=== PATIENT | male | born 1970 | race Caucasian/White ===

== ENCOUNTER 2017-05-03 05:17 | Day surgery (SDC) | payer OTHER ==
--- NOTE | 2017-04-28 03:43 | PREOPHP ---
DATE OF ADMISSION: 05/03/2017 Patient to have surgery with Dr. Ramirez Saavedra 05/03/2017. Consultation requested by Dr. Ramirez Saavedra for medical evaluation and clearance of a 46-year-old gentleman about to undergo surgery. Thank you Dr. Saavedra for allowing us to participate in the care of this patient. Kali Kendrick is a 46-year-old gentleman who has issues with his knee, currently being admitted for correction of the above. PAST SURGICAL HISTORY: In terms of a prior surgical history, had ACL repair on the left knee done in the past. Also had a compound fracture on his left forearm, which was surgically reduced, and treated. Other than that has been relatively well from that standpoint; however, he did have episodes of atrial fibrillation requiring ablation and is currently taking the following medications. MEDICATIONS: 1. Bisoprolol 10 mg b.i.d. 2. Flecainide 100 mg b.i.d. 3. Penlac topical prn . 4. Effexor xr 37.5 mg b.i.d. 5. A variety of other p.r.n. medications. ALLERGIES: HE IS ALLERGIC OR SENSITIVE TO DIGOXIN. PAST FRACTURES: Included a left forearm fracture other than patient has been generally healthy from a medical standpoint. SOCIAL HISTORY: The patient is , has 3 daughters. He does not smoke or drink alcohol. Does drink coffee. Usually has some difficulty sleeping at night. FAMILY HISTORY: Both parents are alive. Father is 75, unknown in his terms of his status of general health. Mother is 72 in good health. Patient is one of nine. Other than diabetes, he knows of no other significant family history of cancer, hypertension, stroke or heart. REVIEW OF SYSTEMS: HEENT: Denies any headaches. CARDIORESPIRATORY: Denies any chest pain or shortness of breath. GASTROINTESTINAL: No melena or hematemesis. GENITOURINARY: No urgency, frequency. MUSCULOSKELETAL: Positive for left knee pain. NEUROPSYCHIATRIC: Unremarkable. GENERAL HEALTH: As above. PHYSICAL EXAMINATION: VITAL SIGNS: Patient's blood pressure was 142/64, pulse was 60 and regular, respiration were 18, temperature 98.6. Height 6 feet, weight 368 pounds. Patient was noted to be a well- developed, well-nourished, obviously overweight male, alert and cooperative, in no apparent acute distress. Oriented to time, place and person. HEENT: Head was atraumatic. Eyes: Pupils were equal, reactive to light and accommodation. Fundi were benign. Tympanic membranes were unremarkable. Nose was negative. Mouth was unremarkable. Fair oral hygiene was present. NECK: Supple without any rigidity. Trachea was midline. Thyroid was unremarkable. Neck veins were flat. Carotid pulses were equal. No bruits were heard. BACK: Exam was unremarkable. CHEST: Symmetrical. BREAST AND AXILLARY: Exam did not reveal any masses. LUNGS: Clear to percussion, auscultation. CARDIAC: PMI is 5th intercostal space at the midclavicular line where sinus rhythm was noted. No significant murmurs, rubs or gallops being elicited. ABDOMEN: Obese and soft. Good bowel sounds were noted. No significant organomegaly, masses or tenderness being noted. GENITALIA: Normal male external genitalia. RECTAL AND PROSTATE: Per PCP. EXTREMITIES: Did not reveal any clubbing, edema or cyanosis. Scar was noted on the left knee from prior surgery. Peripheral pulses were physiologic. SKIN: Moist and warm without any eruptions. LYMPHATIC: No gross lymphadenopathy was noted. NEUROLOGIC: Grossly intact. IMPRESSION: 1. Recurrent tear, anterior cruciate ligament left knee 2. Paroxysmal atrial fibrillation. 3. Metabolic syndrome. 4. Anxiety/depression. 5. Stable health. LABORATORY: Review of laboratory and other data revealed the following. Patient's chemistry panel revealed normal electrolytes. Random glucose was 116. BUN, creatinine, liver function tests, CBC, sed rate, UA, PT and PTT were normal. Patient's EKG revealed nonspecific ST-T wave changes and patient's urinary bladder scan revealed a 61 cc residual. Chest x-ray did not reveal any acute infiltrates. DISCUSSION: Dr. Saavedra, I see no contraindication in this patient undergoing the current proposed surgery under the desired form of anesthesia. I feel he is a suitable candidate at this particular time. Should any medical problems arise during his stay at [facility], we will be more than happy to follow him along with you during that stay. Thank you again, Dr. Ramirez Saavedra, for allowing us to participate in the care of this patient. Dictated By: Rolando Canela MD /elaine/ritu /Document#: [id number] DEB[place]
[2017-04-30 15:02] VITALS: BMI 46.8
[2017-05-03] VITALS (15 sets, daily range): BP systolic 130–166; BP diastolic 55–75; PULSE 64–88; RESP 14–23; Ht 185.4 cm; Wt 167.3 kg
[~2017-05-03] VITALS: Ht 185.4 cm; Wt 167.3 kg
[2017-05-03] MEDS ORDERED: BISO10TA16 PO (06:16)
[2017-05-03] MEDS ORDERED: CLON1TAB3 PO (06:16)
[2017-05-03] MEDS ORDERED: FLEC100T PO (06:16)
[2017-05-03] MEDS ORDERED: VENL-42 PO (06:16)
--- NOTE | 2017-05-03 06:43 | HPN ---
Date/Time of Note Date/Time of Note DATE: 05/03/17 TIME: 06:43 Interval H&P Admission Note Pt. seen H&P reviewed: No system changes JEFERSON POWELL MD May 03, 2017 06:43
[2017-05-03] MEDS ORDERED: FENTAnyl 50 MCG/ML VIAL ONE (06:46)
[2017-05-03] MEDS ORDERED: MIDAZOLAM 1 MG/ML 2 ML INJ ONE (06:46)
[2017-05-03] MEDS ORDERED: BUPIVACAINE 0.5%/EPI (SDV) 30 ML INJ ONE (06:47)
[2017-05-03] MEDS ORDERED: ROPIVACAINE 0.5 % 30 ML VIAL ONE ×2 (06:47→07:03)
[2017-05-03] MEDS ORDERED: LACTATED RINGER'S 1,000 ML IV SCH (07:00)
[2017-05-03] MEDS ORDERED: POLYMYXIN/BACITRACIN 1L IRRIG ONE (07:03)
[2017-05-03] MEDS ORDERED: hydrALAzine 20 MG INJ ONE (08:24)
[2017-05-03] MEDS ORDERED: hydrALAzine 20 MG INJ IV PRN (08:30)
[2017-05-03] MEDS ORDERED: FENTAnyl 50 MCG/ML VIAL IV PRN (08:30)
[2017-05-03] MEDS ORDERED: DIPHENHYDRAMINE 50 MG INJ IV PRN (08:30)
[2017-05-03] MEDS ORDERED: MEPERIDINE 25 MG INJ IV PRN (08:30)
[2017-05-03] MEDS ORDERED: ONDANSETRON 4 MG INJ IV PRN ×2 (08:30→12:30)
[2017-05-03] MEDS ORDERED: LABETALOL HCL 20MG INJ IV PRN (08:30)
[2017-05-03] MEDS ORDERED: morphine (1 MG/ML) 10ML SYRINGE IV PRN ×2 (08:30)
[2017-05-03] MEDS ORDERED: morphine 10 MG INJ ONE ×2 (08:36→10:11)
[2017-05-03] MEDS ORDERED: NALOXONE (0.4 MG/ML) INJ IV PRN (09:30)
[2017-05-03] MEDS ORDERED: morphine SULFATE/PF (10 MG/10 ML) INJ ONE (11:57)
[2017-05-03] MEDS ORDERED: POVIDONE IODINE 10% 28.4 GM OINT ONE (12:05)
[2017-05-03] MEDS ORDERED: SOD CHLORIDE 0.9% 1,000 ML IV SCH (12:29)
[2017-05-03] MEDS ORDERED: OXYCODONE/ACETAMINOPHEN (5/325) TAB PO PRN ×2 (12:30)
[2017-05-03] MEDS ORDERED: morphine 2 MG INJ IV PRN (12:30)
--- NOTE | 2017-05-03 12:32 | OPPN ---
Date/Time of Note Date/Time of Note DATE: 05/03/17 TIME: 12:30 Operative Report Preoperative Diagnosis Left knee ACL re-tear, medial meniscus tear, chondromalacia patella, retained/ painful hardware Postoperative Diagnosis Same Operation/Procedure Performed Left ACLR (BTB allograft), partial medial menisectomy, removal deep implant Provider: JEFERSON POWELL MD assistant signal maintainer: JACQUELYN HOLLEY MD Anesthesia: general Estimated blood loss: 50 - 100 ml's Specimens john (2) Grafts/Implants Allograft patellar tendon Complications: None JEFERSON POWELL MD May 03, 2017 12:32
[2017-05-03] MEDS ORDERED: ALBUTEROL/IPRATROPIUM (NEB) 3 ML AMP HHN STA (12:33)
--- NOTE | 2017-05-04 04:45 | OPR ---
DATE OF OPERATION: 05/03/2017 SURGEON: Ramirez Saavedra MD. BUSINESS SEGMENT MANAGER: Anastacio Reyes MD. PREOPERATIVE DIAGNOSES: 1. Failed a left anterior cruciate ligament reconstruction. 2. Degenerative joint disease of the knee. 3. Rule out tear and meniscus tear. POSTOPERATIVE DIAGNOSES: 1. Postop diagnosis is failed left anterior cruciate ligament reconstruction with a recurrent tear. 2. Tear of the medial meniscus. 3. 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 4. Chondromalacia grade 2-3 medial compartment grade 1 lateral compartment. 5. Status post-partial lateral meniscectomy. 6. Narrowed intercondylar notch. 7. Retained hardware at the operative site. OPERATION PERFORMED: 1. Arthroscopy of the left knee. 2. Partial medial meniscectomy. 3. Removal 2 john from the tibia. 4. Excision torn anterior cruciate ligament graft. 5. Revision anterior cruciate ligament reconstruction with patellar tendon allograft and 2 screws. 6. Chondroplasty, patellofemoral joint. OPERATIVE FINDINGS AT SURGERY: Extremely complex difficult procedure because this was a revision surgery. The patient was 6 foot and 1 inch, 340 pounds with a BMI of 49. Anatomy was quite altered and was very difficult to get the john out. All of this contribute to my needing another 90 minutes of operative time (2200). ANESTHESIA: General with a iliacus block. TOURNIQUET TIME: 125 minutes. OPERATIVE PROCEDURE: Patient taken the OR, placed supine position, and given satisfactory iliacus block, satisfactory general anesthesia was administered. 2 grams of Ancef intravenously. The left knee was prepped and draped in usual manner. Exam under anesthesia revealed full range of motion. , Michael 3+, pivot shift 2+. No varus valgus instability. Standard arthroscopic portals were used on the patella a grade 2- 3 chondromalacia diffusely. There is grade 2-3 chondromalacia on the trochlear groove diffusely. The lateral gutter had no loose bodies. Popliteus was intact. Lateral compartment was entered. The lateral meniscus had a previous lateral meniscectomy. There was no recurrent tears. There was grade 1 chondromalacia. Anterior cruciate ligament is completely torn. The posterior cruciate ligament graft. Intercondylar notch was extremely narrow in the medial compartment was entered. There was a recurrent tear of the medial meniscus. A probe was inserted. The tear was palpated using , the tear was saucerize the mid zone of the posterior horn and taking out much of it posteriorly to the capsule. There was grade 2 chondromalacia of medial compartment, and this was debrided with a shaver. A chondroplasty was performed. The anterior cruciate ligament graft was excised with a shaver and basket. The lateral meniscus was palpated and was intact. Chondroplasty performed along the patella and along the trochlear groove. The patient's internal condylar notch was carefully evaluated and a complete notchplasty was done so we get to the [id number] position. We were able to locate where the previous screw was, we felt this was quite anteriorly and we could put a graft in behind it through a 2 incision technique. I felt we should drill obliquely through the tibial tunnel, because that was in the wrong location, it was quite central. mmHg. An incision was made medial on the tibial proximal tibia dissection here and subcutaneous tissue. The periosteum was elevated where we wanted to insert our drill hole. There were two john. Using osteotome these were freed up until finally I could get a staple remover and incised both john with difficulty. ACL drill guide was placed in appropriate position through the old tunnel, but more obliquely medially. Guide pin was inserted with a large 10 mm and all debris was removed, and we saw good bone all around the area. The Vector drill guide was inserted, we marked the skin on the distal femur. Incision was made along the distal femur, dissection carried down subcutaneous tissue. The patient was quite large and there was quite deep hole on both sides of the knee. The iliotibial band was split in line with its fibers. The vastus lateralis was peeled off the intermuscular septum and retracted with Z-retractors. The Vector drill guide was inserted, we placed it into appropriate position posteriorly, then put a guide pin, was checked it and then enlarged the hole to 10 mm. We then put a Gortex smoother and smooth all rough edges. Measured the length to be 100 mm. The autograft was opened. There was a patellar tendon with 2 bone plugs. The bone plugs were prepared with three #2 fiber wires from transverse drill holes. Bone plugs were made for 10 mm drill hole. Once the graft had been appropriate. We contoured, it nicely went through 10 hole. The graft was then passed with a [employer] smoother and it fit perfectly. We fixated the femoral bone plug with a 9 x 25 silk screw from [employer]. Excellent fixation was obtained. The knee was then flexed 20 times pre-stressing graft, posterior drawer placed on the graft and 10-15 degrees of flexion. The graft was secured with another 9 x 25 mm screw. The knee had full range of motion with no graft impingement and the graft was quite tight and Michael was back to 1+. Wounds irrigated with antibiotic solution. The periosteum was closed with a running #0 PDS on both sides. The subcutaneous tissues closed with #2-0 and #3-0 dyed Vicryl on both sides, and #3-0 Monocryl was used with Steri- Strips to close the skin of both tibia and femur. The wounds were closed loosely with Steri-Strips. The knee was then injected with 3 mL of Duramorph and 17 mL of ropivacaine, and then the proximal tibial wound was injected with 0.5 percent ropivacaine. A compression dressing was then applied as well as a hinged knee brace, an ice pack in a locked 0 position. At the end of the procedure sponge and needle count was correct. Patient tolerated the procedure well. RUST PROOFER ORTHOPEDIC SURGEON: An medical assistant instructor orthopedic surgeon was not used at my request. Supervisor Histology was to manipulate the knee and placed the arthroscope, assist in exposure, and also when drilling the tibial and femoral holes, and securing the graft, while I pulled tension on it. Without a skilled orthopedic surgeon assistants cannot be done, therefore it appropriate. Dictated By: Ramirez Saavedra MD /elaine/dina /Document#: [id number]
== END 2017-05-03 14:57 | disposition home or self-care (01) ==
LOC: SDS 05:17
PROVIDERS: ATTEND Orthopaedic Surgery
DX: T84.410A Breakdown (mechanical) of muscle and tendon graft, initial encounter (principal); S83.512A Sprain of anterior cruciate ligament of left knee, initial encounter; M23.222 Derangement of posterior horn of medial meniscus due to old tear or injury, left knee; M22.42 Chondromalacia patellae, left knee; M94.262 Chondromalacia, left knee; E66.9 Obesity, unspecified; Z68.42 Body mass index [BMI] 45.0-49.9, adult; G47.30 Sleep apnea, unspecified; I48.91 Unspecified atrial fibrillation; Y83.8 Other surgical procedures as the cause of abnormal reaction of the patient, or of later complication, without mention of misadventure at the time of the procedure; X58.XXXA Exposure to other specified factors, initial encounter
CPT/HCPCS: 20680; 29881; 29888; 94664; C1713; C1762; J0360; J2250; J2270; J2274; J2795; J3010